=== PATIENT | male | born 1985 | race Caucasian/White ===

== ENCOUNTER 2017-01-22 22:36 | Emergency (ER) | payer MEDICARE ==
[2017-01-23 02:01] LABS: HEMOGLOBIN 15.3 gm/dl (14.0-17.5); RED BLOOD COUNT 4.79 M/UL (4.20-5.50)
[2017-01-23 02:19] LABS: BUN/CREATININE RATIO 16 (0-10)
== END 2017-01-23 06:40 | disposition home or self-care (01) ==
LOC: ER1 22:36
PROVIDERS: Student in an Organized Health Care Education/Training Program
DX: R10.811 Right upper quadrant abdominal tenderness (principal); F17.210 Nicotine dependence, cigarettes, uncomplicated; Z79.899 Other long term (current) drug therapy
CPT/HCPCS: 36415; 71010; 73590; 80053; 81001; 82150; 82550; 82553; 83690; 83874; 84484; 85025; 93005; 96374; 96375; 99284; J2270; J2405; J7050; Q9962

== ENCOUNTER 2022-04-15 18:07 | Emergency (ER) | payer OTHER ==
[2022-04-15 18:45] LABS: HEMOGLOBIN 15.3 gm/dl (14.0-17.5); RED BLOOD COUNT 4.57 M/UL (4.20-5.50); WHITE BLOOD COUNT 11.4 K/UL (4.5-11.0)
[2022-04-15 19:24] LABS: BUN/CREATININE RATIO 28 (0-10)
[2022-04-15 21:56] LABS: BUN/CREATININE RATIO 28 (0-10)
[2022-04-15] MEDS ORDERED: GLUCOPHAGE 500500 MG PO (22:10)
[2022-04-15] MEDS ORDERED: JANUVIA25 MG PO (22:10)
[2022-04-15] MEDS ORDERED: HYDROCODON-ACE1 EAC4 PO (22:11)
== END 2022-04-15 22:45 | disposition home or self-care (01) ==
LOC: ER1 18:07
PROVIDERS: Emergency Medicine; Preventive Medicine Occupational Medicine
DX: K76.0 Fatty (change of) liver, not elsewhere classified (principal); K80.20 Calculus of gallbladder without cholecystitis without obstruction; E11.9 Type 2 diabetes mellitus without complications
CPT/HCPCS: 36600; 80048; 80053; 81001; 82009; 82803; 82962; 83036; 83690; 85025; 85652; 86140; 96361; 96374; 96375; 99284; C9113; Q9967

== ENCOUNTER 2022-04-20 18:53 | Inpatient (IN) | payer OTHER ==
[~2022-04-20] VITALS: Ht 182.9 cm; Wt 102.1 kg
[~2022-04-20 18:53] MED LIST: GLUCOPHAGE 500500 MG PO; HYDROCODON-ACE1 EAC4 PO; JANUVIA25 MG PO
[2022-04-20 20:01] LABS: RED BLOOD COUNT 5.18 M/UL (4.20-5.50); WHITE BLOOD COUNT 15.7 K/UL (4.5-11.0)
[2022-04-20 20:02] LABS: HEMOGLOBIN 17.7 gm/dl (14.0-17.5)
[2022-04-20 20:34] LABS: BUN/CREATININE RATIO 46 (0-10)
[2022-04-21 03:54] LABS: RED BLOOD COUNT 4.69 M/UL (4.20-5.50)
[2022-04-21 03:55] LABS: HEMOGLOBIN 15.3 gm/dl (14.0-17.5)
[2022-04-21 04:17] LABS: BUN/CREATININE RATIO 17 (0-10)
[2022-04-21] MEDS ORDERED: METFORMIN HCL500 MG PO (12:16)
[2022-04-21 13:15] LABS: BUN/CREATININE RATIO 16 (0-10)
[2022-04-21] MEDS ORDERED: LISINOPRIL5 MG PO (16:10)
[2022-04-21] MEDS ORDERED: HUMALOG 10100 UNITS/ SC (16:10)
[2022-04-21] MEDS ORDERED: LANTUS INS100 UTS/M1 SC (16:10)
== END 2022-04-21 18:40 | disposition home or self-care (01) | DRG 639 ==
LOC: ER1 18:53 → CDU 21:59 → CCU 21:59
PROVIDERS: Physician Assistant; ADMIT Internal Medicine
DX: E11.10 Type 2 diabetes mellitus with ketoacidosis without coma (principal); I10 Essential (primary) hypertension; Z20.822 Contact with and (suspected) exposure to COVID-19; K76.0 Fatty (change of) liver, not elsewhere classified; E66.9 Obesity, unspecified; E86.0 Dehydration; Z96.41 Presence of insulin pump (external) (internal); K76.89 Other specified diseases of liver; F17.210 Nicotine dependence, cigarettes, uncomplicated; K80.20 Calculus of gallbladder without cholecystitis without obstruction; Z79.4 Long term (current) use of insulin; Z83.3 Family history of diabetes mellitus; Z68.30 Body mass index [BMI] 30.0-30.9, adult
CPT/HCPCS: 36415; 71045; 80048; 80053; 81001; 82009; 82800; 82962; 83690; 83735; 85025; 87086; 96374; 99284

== ENCOUNTER → 2022-05-20 | Outpatient (CLI) | payer OTHER ==
[~2022-05-20] MED LIST changes: +HUMALOG 10100 UNITS/ SC; +LANTUS INS100 UTS/M1 SC; +LISINOPRIL5 MG PO; +METFORMIN HCL500 MG PO
[2022-05-20 17:30] LABS: RED BLOOD COUNT 5.22 M/UL (4.20-5.50); WHITE BLOOD COUNT 14.9 K/UL (4.5-11.0)
[2022-05-20 17:49] LABS: BUN/CREATININE RATIO 21 (0-10)
== END ==
LOC: LAB 17:11
PROVIDERS: Nurse Practitioner Family
DX: R74.8 Abnormal levels of other serum enzymes (principal)
CPT/HCPCS: 36415; 80053; 83735; 85025